=== PATIENT | female | born 1950 | race Caucasian/White ===

== ENCOUNTER 2019-06-11 19:08 | Inpatient (IN) ==
[2019-06-11] MEDS ORDERED: SOLU-MEDROL IV ONE (19:35)
[2019-06-11] MEDS ORDERED: PULMICORT INH ONE (19:35)
[2019-06-11] MEDS ORDERED: DUONEB (A & A) INH ONE (19:35)
[2019-06-11] MEDS: ALBUTEROL NEB INH ONE ×2 (19:52→22:12)
[2019-06-11] MEDS ORDERED: ALBUTEROL NEB ONE (19:56)
[2019-06-11 19:59] LABS: BASO# 0.21 X1000 (0.0-0.2); BASO% 1.8 % (0.0-0.8); EOS# 1.79 X1000 (0.0-0.7); EOS% 15.5 % (0.0-10.0); HEMATOCRIT 38.5 % (37.0-47.0); HEMOGLOBIN 12.4 g/dL (12.0-16.0); IMM GRAN# 0.02 X1000 (0.0-0.04); IMM GRAN% 0.2 % (0.0-0.5); LYMPH# 2.91 X1000 (1.2-3.4); LYMPH% 25.2 % (20.5-51.1); MCHC 32.2 g/dL (33-37); MCV 96.3 FL (81-99); MONO# 0.91 X1000 (0.11-0.59); MONO% 7.9 % (1.7-9.3); MPV 10.2 FL (7.4-10.4); NEUT# 5.73 X1000 (1.4-6.5); NEUT% 49.4 % (42.2-75.2); PLT 341 X1000 (130-400); RDW 13.4 % (11.5-14.5); WBC 11.57 X1000 (4.8-10.8)
--- NOTE | 2019-06-11 20:19 | Diag Imaging Result Doc PS360 ---
EXAM: CHEST-1 VIEW HISTORY: SOB TECHNIQUE: Single view COMPARISON: 02/18/2020 FINDINGS: The lungs are well expanded. The heart is not enlarged. The vessels are not distended. There are no infiltrates. No effusion identified. IMPRESSION: Negative exam. Electronically signed by Gus Rasheed 06/11/2019 8:17 PM
[2019-06-11 20:26] LABS: ALBUMIN 4.5 g/dL (3.5-5.0); CALCIUM 9.6 mg/dL (8.8-10.2); CREATININE 1.4 mg/dL (0.5-0.9); POTASSIUM 4.2 mmol/L (3.5-5.1); TOTAL BILIRUBIN 0.2 mg/dL (0.20-1.00); TOTAL PROTEIN 7.7 g/dL (6.3-8.3)
[2019-06-11] MEDS ORDERED: ALBUTEROL NEB INH ONE (22:05)
--- NOTE | 2019-06-11 22:57 | PROVIDER DOCUMENTATION ---
This chart was entered by Ana Lilia Rose Scribe, acting as scribe for Xander Mcclendon MD. HPI-Respiratory General - General Chief Complaint: Shortness of Breath Stated Complaint: LOW O2-COPD Time Seen by Provider: 06/11/19 19:22 Source: patient Allergies/Adverse Reactions: Patient Allergies Allergy/AdvReac Type Severity Reaction Status Date / Time erythromycin base Allergy Mild NAUSEA Verified 06/11/19 19:28 [Erythromycin Base] latex Allergy Unknown Verified 06/11/19 19:28 Home Medications: Home Medication List Medication Instructions Recorded Confirmed Last Taken Type Zolpidem [Ambien] 10 mg PO QHS 08/06/13 06/11/19 06/10/19 History Amlodipine Besylate [Norvasc] 5 mg PO DAILY 05/13/14 06/11/19 06/11/19 History Duloxetine [Cymbalta] 60 mg PO DAILY 05/13/14 06/11/19 06/11/19 History Albuterol Sulfate Inhaler 2 puff INH Q6H PRN PRN #1 inhaler 10/12/17 06/11/19 07/14/18 Rx [Ventolin Hfa] 2 puffs Metoprolol [Lopressor] 1 tab PO DAILY 06/11/19 06/11/19 06/11/19 History - History of Present Illness-Resp Nature of Presenting Problem: Pt is a 69 yof who presents to the ED with a CC of SOB. Pt states the SOB began this afternoon. Pt denies fever and chest pain. Pt reports coughing up a clear substance. Pt reports having a heart attack & 2 stents 10 years ago. Pt reports HBP and COPD. Pt reports popping in her ears. Pt reports congestion. Pt is a smoker. pt denies any other symptoms. Quality of Pain: reports: none Cough Quality/Degree: reports: mild Episode Frequency: no prior episodes Current Respiratory Medication Therapy: Initiated see nurses note Modifying Factors: improves with: nothing Associated Symptoms: reports: cough, nasal congestion, shortness of breath Similar Symptoms Previously?: No Recently seen or treated by another doctor?: No Review of Systems - Adult - REVIEW OF SYSTEMS - ADULT Constitutional: reports: see HPI Eyes: reports: no symptoms reported Ears, Nose, Mouth & Throat: reports: see HPI, other (EAR POPPING) Cardiovascular: reports: no symptoms reported Respiratory: reports: see HPI, cough, shortness of breath Gastrointestinal: reports: no symptoms reported Genitourinary: reports: no symptoms reported Musculoskeletal: reports: no symptoms reported Integumentary: reports: no symptoms reported Neurological: reports: no symptoms reported Psychiatric: reports: no symptoms reported Endocrine: reports: no symptoms reported Hematologic/Lymphatic: reports: no symptoms reported Allergic/Immunologic: reports: no symptoms reported All Other Systems: Reviewed and Negative Past History - Adult - PAST MEDICAL HISTORY-ADULT Review of Records: reports: Medications Reviewed Major Childhood Illnesses: reports: denies history Cardiovascular: reports: CAD, HTN, hyperlipidemia, other (poor circulation) Respiratory: reports: COPD Gastrointestinal: reports: denies history Obstetrical/Gynecological: reports: denies history Genitourinary: reports: denies history Musculoskeletal: reports: denies history Neurological: reports: denies history Endocrine/Immune: reports: denies history Other Conditions: reports: denies history - PRIOR SURGERIES/PROCEDURES Surgical/Procedure History: reports: cardiac stent, orthopedic (extremity) (hand Sx) - IMMUNIZATION STATUS Childhood Immunizations: See Nurse Assessment Flu Vaccine: See Nurse Assessment - FAMILY HISTORY Family History: reviewed, not pertinent - SOCIAL HISTORY Smoking: cigarettes, greater than 1 pack/day Provider spent 3-5 mins advising pt. on dangers of tobacco.: Discussed manners to quit use, and f/u contacts for add'l counseling. Substance Use: denies Living Situation: family Physical Exam-General - PHYSICAL EXAM-ADULT Initial Vital Signs Reviewed: Yes - CONSTITUTIONAL General Appearance: alert, no apparent distress - EYES Eyes: PERRL/EOMI, pink conjunctivae. negative: sunken eyes - HEAD, EARS, NOSE, MOUTH & THROAT HENMT: normocephalic/atraumatic, moist mucous membranes - NECK Neck: non-tender, full range of motion, supple, normal inspection - RESPIRATORY Respiratory: chest non-tender, other (slightly decreased air flow) - CARDIOVASCULAR Cardiovascular: normal peripheral pulses, regular rate, rhythm. negative: bradycardia, tachycardia - GASTROINTESTINAL (ABDOMEN) Abdominal Exam: normal bowel sounds, non tender, soft. negative: guarding, tenderness - MUSCULOSKELETAL Back Exam: normal inspection, no CVA tenderness, no vertebral tenderness. negative: ecchymosis Extremity: normal range of motion - SKIN Integumentary: normal color, normal turgor, warm/dry. negative: ecchymosis, erythema - PSYCHIATRIC Psych/Mental Status: normal mood/affect, normal thought content, normal thought process, oriented x 3 - HEART Score HEART Score: History: Slightly Suspicious HEART Score: Age: > or = 65 Years HEART Score: Risk Factors for Atherosclerotic Disease: > or = 3 Risk Factors or History of Atherosclerotic Disease Progress - PLAN OF CARE/RESULTS Progress/Plan/Lab Results: Vital Signs - 8 hr 06/11/19 19:22 06/11/19 19:50 06/11/19 21:00 Temperature 97.7 F Pulse Rate 71 63 63 Respiratory Rate 24 16 Blood Pressure 133/72 113/65 O2 Sat by Pulse Oximetry 88 L 94 L 92 L 06/11/19 22:14 Temperature Pulse Rate 89 Respiratory Rate 19 Blood Pressure O2 Sat by Pulse Oximetry Laboratory Results - last 24 hr 06/11/19 06/11/19 19:45 19:45 WBC 11.57 H RBC 4.00 L Hgb 12.4 Hct 38.5 MCV 96.3 MCH 31.0 MCHC 32.2 L RDW Std Deviation 13.4 Plt Count 341 MPV 10.2 Immature Gran % (Auto) 0.2 Neut % (Auto) 49.4 Lymph % (Auto) 25.2 Ocean % (Auto) 7.9 Eos % (Auto) 15.5 H Baso % (Auto) 1.8 H Immature Gran # (Auto) 0.02 Neut # (Auto) 5.73 Lymph # (Auto) 2.91 Ocean # (Auto) 0.91 H Eos # (Auto) 1.79 H Baso # (Auto) 0.21 H Sodium 140 Potassium 4.2 Chloride 101 Carbon Dioxide 27 Anion Gap 11 BUN 25 H Creatinine 1.4 H Estimated GFR/1.73 m2 37 BUN/Creatinine Ratio 18 Glucose 118 H Calculated Osmolality 285 Calcium 9.6 Total Bilirubin 0.20 AST 11 ALT 6 L Alkaline Phosphatase 89 Total Protein 7.7 Albumin 4.5 Globulin 3.0 Albumin/Globulin Ratio 1.0 Orders Category Date Time Status Nursing- Obtain EKG ONCE Care 06/11/19 19:34 Active CHEST-1 VIEW [RAD] Stat Exams 06/11/19 19:34 Completed CBC WITH DIFF [HEME] Stat Lab 06/11/19 19:45 Completed COMPREHENSIVE METABOLIC PANEL [CHEM] Stat Lab 06/11/19 19:45 Completed Albuterol 2.5MG/Ipratrop 0.5MG [Duoneb (A & A)] Med 06/11/19 19:35 Discontinued 3 ml INH NOW ONE Albuterol [Albuterol Neb] Med 06/11/19 19:56 Discontinued 2.5 mg .ROUTE .STK-MED ONE Albuterol [Albuterol Neb] Med 06/11/19 19:35 Discontinued 5 mg INH NOW ONE Albuterol [Albuterol Neb] Med 06/11/19 22:05 Discontinued 5 mg INH NOW ONE Budesonide [Pulmicort] Med 06/11/19 19:35 Discontinued 0.5 mg INH NOW ONE Methylprednisolone Sod Succ [Solu-Medrol] Med 06/11/19 19:35 Discontinued 125 mg IV NOW ONE Aerosol Treatments Routine Oth 06/11/19 19:35 Completed Aerosol Treatments Routine Oth 06/11/19 22:05 Completed Aerosol Treatments Stat Oth 06/11/19 19:35 Completed Aerosol Treatments Stat Oth 06/11/19 22:05 Completed EKG [EKG] Stat Ther 06/11/19 19:34 Ordered Result Diagrams: 06/11/19 19:45 06/11/19 19:45 - REASSESSMENT Reassessment #1 Time Reassessed: 21:50 (says feels almost back to normal, would not have come in if felt way she does now. Repeat exam- BS are clear. However sats are 86, says her NL are 92-93.) Reassessment #2 Time Reassessed: 22:53 (sats 88-89 on RA while sitting) - EKG 1 Time of EKG reading by physician:: 19:35 EKG Read and Signed by:: Xander Mcclendon EKG Interpretation (*Must complete 3 of following elements*): Abnormal (rate 63 septal infarct, age undetermined NSR) - CONSULTS/PCP/HOSPITALIST Notification #1 *Consult/PCP/Hospitalist*: [place] Time Discussed: 22:56 Consult Disposition: Admit Departure - Departure Date of Disposition Decision: 06/11/19 Time of Disposition Decision: 22:54 DIAGNOSIS: COPD with exacerbation, Hypoxia, Tobacco abuse disorder Disposition: ADMITTED INPATIENT 09 Certified Medical Emergency: Emergent Condition: Stable Referrals and Follow-Ups: Stephen Crisostomo MD [Primary Care Provider] - Discharge Education: Steps to Quit Smoking, [facility] - Critical Care Note This patient required my direct & personal management of CC.: No Attestation - Physician/ ABBIE Attestation Patient care was provided by Advanced Practice Provider:: No The physician spent face to face time with patient:: Yes Advanced Practice Provider documentation review:: Supervising physician onsite and consulted in the evaluation and care of this patient. The physician did have a face to face encounter with the patient. This chart was documented by the indicated scribe, (Ana Lilia Rose Scribe) and accurately reflects the services I performed and decisions made by me, Xander Mcclendon MD, as attested by the provider's signature.
[2019-06-11] MEDS ORDERED: NICODERM PATCH TD ONE (23:00)
[2019-06-11] MEDS: DUONEB (A & A) INH SCH (23:44)
[2019-06-12] MEDS: SOLU-MEDROL IV SCH ×4 (02:18→21:44)
[2019-06-12] MEDS: DUONEB (A & A) INH SCH ×5 (07:32→22:30)
--- NOTE | 2019-06-12 07:51 | EKG Report ---
Test Performed on : 06/11/2019 7:35:45 PM Test Reason : SOB Blood Pressure : / mmHG Vent. Rate : 062 BPM Atrial Rate : 062 BPM P-R Int : 168 ms QRS Dur : 082 ms QT Int : 434 ms P-R-T Axes : 066 -11 050 degrees QTc Int : 440 ms Normal sinus rhythm. Septal infarct (cited on or before 11-JUN-2019) Abnormal ECG When compared with ECG of 11-JUN-2019 19:35, (Unconfirmed) No significant change was found Unconfirmed Result
[2019-06-12] MEDS ORDERED: FLU VACCINE IM ONE (08:00)
[2019-06-12] MEDS: ZOFRAN IV PRN ×2 (14:42→20:03)
[2019-06-12] MEDS ORDERED: NICODERM PATCH TD PRN (16:06)
--- NOTE | 2019-06-12 16:43 | HISTORY AND PHYSICAL ---
CHIEF COMPLAINT: Shortness of breath. HISTORY OF PRESENT ILLNESS: This is a 69-year-old female with a history of COPD and CAD, who presents with shortness of breath, "her breathing went down." She does report a cough productive of light sputum, sore throat, congestion, and excessive shortness of breath, subjective fevers as well. Her main concern is she checks her oximetry at home and she got a number of 86% and then she came in for evaluation. She was found to be acutely bronchospastic and she was admitted for COPD exacerbation associated pneumonia. PAST MEDICAL HISTORY: 1. COPD. 2. History of CAD. 3. Hypertension. PAST SURGICAL HISTORY: PCI x2, shoulder surgery, wrist surgery. SOCIAL HISTORY: Forty pack year history of smoking. No alcohol. FAMILY HISTORY: Asthma, breast cancer, [place]. ALLERGIES: Azithromycin. MEDICATIONS: Ambien 10, Cymbalta 60 daily, Lopressor 25 daily, Norvasc 5 daily, albuterol as needed. REVIEW OF SYSTEMS: Otherwise negative times a 10 point review of systems. PHYSICAL EXAMINATION: VITAL SIGNS: Blood pressure was 129/68, heart rate of 88, respiratory rate of 17, O2 saturation 97%, temperature 98.1 degrees. GENERAL: A well-developed female, in no acute distress. She seems a little bit jittery from breathing treatments, steroids. EYES: Pupils equal, round, reactive to light. Extraocular movements were intact. EAR, NOSE, THROAT: She had moist mucous membranes. NECK: Supple. CARDIOVASCULAR: Regular rate and rhythm. PULMONARY: She had end-expiratory wheezes occasionally. She had bronchial breath sounds at the right base, but fairly good air movement. GI: Soft, nontender, nondistended. Bowel sounds are positive. NEUROLOGIC: Nonfocal. MUSCULOSKELETAL: Has 4/5 in all 4 extremities. LABORATORY DATA: White count is 11, hemoglobin and hematocrit 12 and 38, platelets 341,000. Creatinine of 1.4. ASSESSMENT: This is a 69-year-old female with history of chronic obstructive pulmonary disease, bronchitis, here with a chronic obstructive pulmonary disease exacerbation. 1. Chronic obstructive pulmonary disease exacerbation. Continue nebulizers, antibiotics, and treatments. Repeat chest x-ray to evaluate for pathology. 2. Tobacco abuse. We counseled on cessation. 3. Hypertension. We adjusted her medications. DISPOSITION: Pending her clinical status. I anticipate she will need home oxygen and we can continue to follow that. Outpatient pulmonary follow up, PFTs, and possibly long-acting beta agonist versus inhaled steroid. cc: Antonio Matute MD MTDD
[2019-06-12] MEDS: CYMBALTA PO SCH (16:55)
[2019-06-12] MEDS: ROCEPHIN 1 GM in NS 50 ML IV SCH (16:55)
[2019-06-12] MEDS: NORVASC PO SCH (16:55)
[2019-06-12] MEDS: SPIRIVA INH SCH (17:54)
[2019-06-12 21:03] LABS: BILIRUBIN URINE NEGATIVE (NEGATIVE); BLOOD URINE 1+ (NEGATIVE); CLARITY CLEAR (CLEAR); COLOR YELLOW; KETONE URINE TRACE mg/dL (NEGATIVE); LEUKOCYTES URINE TRACE (NEGATIVE); NITRITE URINE NEGATIVE (NEGATIVE); PROTEIN URINE NEGATIVE (NEGATIVE); SP GRAVITY URINE 1.015; UROBILINOGEN URINE NORMAL
[2019-06-12 21:07] LABS: URINE WBC <10 /HPF (<10)
[2019-06-12 21:08] LABS: URINE BACTERIA 2+ /HFP; URINE EPITHELIAL CELLS <10 /HPF (<10); URINE RBC <10 /HPF (<10); URINE SOURCE CLEAN CATCH
[2019-06-12] MEDS: AMBIEN PO SCH (21:44)
[2019-06-12] MEDS: MUCINEX PO SCH (21:44)
--- NOTE | 2019-06-13 05:56 | Diag Imaging Result Doc PS360 ---
EXAM: CT HEAD W/O CONTRAST HISTORY: Fall TECHNIQUE: CT head without contrast COMPARISON: None. FINDINGS: Right posterior scalp soft tissue swelling. No parenchymal hemorrhage. No epidural or subdural hematoma. No subarachnoid hemorrhage. Chronic microvascular ischemic changes with an old left caudate lacunar infarct. There is also an old right frontal lacunar infarct and a small infarct adjacent to the occipital horn of the left lateral ventricle. No mass identified on this noncontrasted exam. No hydrocephalus. No skull fracture. IMPRESSION: 1.Posterior scalp soft tissue swelling, but no intracranial injury 2.Old infarcts with chronic microvascular ischemic changes 3.A preliminary report was given at 3:24 AM This exam was performed using automated exposure control, adjustment of mA or kV according to patient size, and/or use of iterative reconstruction technique. Electronically signed by Gus Rasheed 06/13/2019 5:54 AM
--- NOTE | 2019-06-13 06:00 | Diag Imaging Result Doc PS360 ---
EXAM: CHEST-2 VIEWS HISTORY: hypoxia TECHNIQUE: Two views COMPARISON: 06/11/2019 FINDINGS: The lungs are hyperexpanded. The heart is not enlarged. The vessels are small. There are no infiltrates. No pleural effusions. Calcified left hilar lymph node. IMPRESSION: Emphysema Electronically signed by Gus Rasheed 06/13/2019 5:58 AM
[2019-06-13] MEDS: SOLU-MEDROL IV SCH ×3 (06:02→21:24)
--- NOTE | 2019-06-13 06:04 | Diag Imaging Result Doc PS360 ---
EXAM: PELVIS HISTORY: Fall TECHNIQUE: Single view COMPARISON: None. FINDINGS: No fracture. No dislocation. Prominent atherosclerosis. IMPRESSION: No acute bony injury. A preliminary report was given at 3:25 AM Electronically signed by Gus Rasheed 06/13/2019 6:02 AM
[2019-06-13 06:48] LABS: CALCIUM 9.5 mg/dL (8.8-10.2); CREATININE 1.3 mg/dL (0.5-0.9); MAGNESIUM 1.8 mg/dL (1.5-2.7); POTASSIUM 4.1 mmol/L (3.5-5.1)
[2019-06-13 06:59] LABS: BASO# 0.03 X1000 (0.0-0.2); BASO% 0.1 % (0.0-0.8); HEMATOCRIT 38.6 % (37.0-47.0); IMM GRAN# 0.12 X1000 (0.0-0.04); IMM GRAN% 0.4 % (0.0-0.5); LYMPH# 1.09 X1000 (1.2-3.4); LYMPH% 3.9 % (20.5-51.1); MCH 30.4 PG (27-31); MCHC 31.1 g/dL (33-37); MCV 97.7 FL (81-99); MONO% 2.9 % (1.7-9.3); MPV 10.4 FL (7.4-10.4); NEUT# 25.59 X1000 (1.4-6.5); NEUT% 92.7 % (42.2-75.2); PLT 366 X1000 (130-400); RBC 3.95 XMIL (4.2-5.4); RDW 13.8 % (11.5-14.5); WBC 27.63 X1000 (4.8-10.8)
[2019-06-13 07:27] LABS: LYMPHS 5 % (21-51); MONO 2 % (1-9); SEGS 93 % (42-75)
[2019-06-13] MEDS: SPIRIVA INH SCH (07:53)
[2019-06-13] MEDS: DUONEB (A & A) INH SCH ×3 (07:53→15:30)
[2019-06-13] MEDS: CYMBALTA PO SCH (09:34)
[2019-06-13] MEDS: NORVASC PO SCH (09:34)
[2019-06-13] MEDS: MUCINEX PO SCH ×2 (09:34→21:24)
[2019-06-13] MEDS: ROCEPHIN 1 GM in NS 50 ML IV SCH (15:23)
[2019-06-13] MEDS: TYLENOL PO PRN (16:43)
--- NOTE | 2019-06-13 17:17 | PROGRESS NOTE ---
DATE: 06/13/2019 SUBJECTIVE: Patient notes that she is feeling a little bit better. Still having some cough, shortness of breath, dyspnea on exertion. Denies any fevers or chills. OBJECTIVE: Vital signs: Temperature 98, pulse 103, respiratory rate 18, BP 122/61. General: Patient is in mild current respiratory distress. HEENT: Normocephalic. Neck: Supple. Cardiovascular: Regular rate. Chest: Decreased but equal. No crackles. No wheezing. Abdomen: Soft, nondistended. Extremities: Moves all extremities. No edema. Neurologic: No changes. ASSESSMENT: 1. Chronic obstructive pulmonary disease with exacerbation. 2. Chronic tobacco abuse. 3. Hypertension. 4. Leukocytosis. 5. Chronic renal failure. 6. Hyperglycemia. PLAN: We are going to decrease her Solu-Medrol. She is on Rocephin. We are going to continue that. I expect that her white count elevation is secondary to steroids as clinically she does appear to be improving. We are going to continue to follow. Further orders as needed. Hopefully if her white count improves and she improves, she can discharge home tomorrow. cc: Keny Zaidi MD
[2019-06-13] MEDS: XOPENEX NEB INH SCH ×2 (19:31→22:54)
[2019-06-13] MEDS: AMBIEN PO SCH (21:24)
[2019-06-14] MEDS: XOPENEX NEB INH SCH ×8 (02:37→23:56)
[2019-06-14 05:14] LABS: HEMOGLOBIN 11.3 g/dL (12.0-16.0); MCH 30.1 PG (27-31); MCHC 30.5 g/dL (33-37); MCV 98.4 FL (81-99); MPV 10.3 FL (7.4-10.4); RBC 3.76 XMIL (4.2-5.4); RDW 14.2 % (11.5-14.5); WBC 15.25 X1000 (4.8-10.8)
[2019-06-14] MEDS: SOLU-MEDROL IV SCH ×3 (05:42→21:00)
[2019-06-14 05:50] LABS: AGAP 12; ALKALINE PHOSPHATASE 70 U/L (32-104); BUN 23 mg/dL (8-22); CALCIUM 9.1 mg/dL (8.8-10.2); CHLORIDE 102 mmol/L (98-107); COSMO 283; CREATININE 1.1 mg/dL (0.5-0.9); ESTIMATED GFR 49; GLUCOSE 137 mg/dL (70-104); GOT 12 U/L (10-30); GPT 9 U/L (10-36); POTASSIUM 4.3 mmol/L (3.5-5.1); SODIUM 139 mmol/L (136-145); TCO2 26 mmol/L (25-35); TOTAL BILIRUBIN < 0.15 mg/dL (0.20-1.00); TOTAL PROTEIN 6.9 g/dL (6.3-8.3)
[2019-06-14] MEDS: SPIRIVA INH SCH (08:03)
--- NOTE | 2019-06-14 09:19 | Diag Imaging Result Doc PS360 ---
EXAM: CHEST-2 VIEWS HISTORY: hypoxia TECHNIQUE: Two views COMPARISON: 06/13/2019 FINDINGS: The lungs are hyperexpanded. The heart is not enlarged. The vessels are small. There are no infiltrates. No pleural effusions. IMPRESSION: Emphysema Electronically signed by Gus Rasheed 06/14/2019 9:17 AM
[2019-06-14] MEDS: NORVASC PO SCH (09:27)
[2019-06-14] MEDS: MUCINEX PO SCH ×2 (09:27→20:51)
[2019-06-14] MEDS: CYMBALTA PO SCH (09:27)
[2019-06-14] MEDS: ROCEPHIN 1 GM in NS 50 ML IV SCH (15:52)
--- NOTE | 2019-06-14 16:04 | EKG Report ---
Test Performed on : 06/14/2019 3:35:12 PM Test Reason : 7 beat run of radha oleary on telemetry Blood Pressure : / mmHG Vent. Rate : 087 BPM Atrial Rate : 087 BPM P-R Int : 146 ms QRS Dur : 090 ms QT Int : 378 ms P-R-T Axes : 071 -30 057 degrees QTc Int : 454 ms Normal sinus rhythm. Possible Left atrial enlargement Left axis deviation RSR' or QR pattern in V1 suggests right ventricular conduction delay Possible Anteroseptal infarct (cited on or before 14-JUL-2018) Abnormal ECG When compared with ECG of 11-JUN-2019 19:35, (Unconfirmed) No significant change was found Confirmed by Stephen Banda MD ([id number]) on 06/15/2019 1:57:47 AM
[2019-06-14] MEDS: AMBIEN PO SCH (20:51)
--- NOTE | 2019-06-14 20:58 | PROGRESS NOTE ---
DATE: 06/14/2019 SUBJECTIVE: Patient notes that she is feeling a lot better, but still not back to her baseline. Still coughing, congestion, still wheezing, still short of breath with short ambulation to the restroom. PHYSICAL EXAMINATION: Temperature 98, pulse 103, respiratory rate 18, BP 120/60.General: Patient is very pleasant. She is still in mild respiratory distress. HEENT: Normocephalic. Neck: Supple. Cardiovascular: Regular rate. Chest: Decreased breath sounds. Minimal wheezing. No crackles. Positive rhonchi. Abdomen: Soft, nondistended, nontender. Extremities: Moves all extremities. Neurologic: No changes. ASSESSMENT: 1. Leukocytosis. White count is improving, down to 15. 2. Chronic obstructive pulmonary disease with exacerbation. 3. Chronic tobacco abuse. 4. Hypertension. 5. Acute on chronic renal failure. Resolved. PLAN: We are going to continue patient in the hospital. Continue Rocephin for her antibiotics. Continue breathing treatments, steroids. We will decrease her steroids to 40 IV q.12, and see how she tolerates this. Further orders as needed. cc: Keny Zaidi MD
[2019-06-15] MEDS: XOPENEX NEB INH SCH ×6 (04:27→23:02)
[2019-06-15 05:05] LABS: HEMATOCRIT 39.3 % (37.0-47.0); MCH 29.8 PG (27-31); MCHC 30.5 g/dL (33-37); MCV 97.5 FL (81-99); MPV 10.3 FL (7.4-10.4); RBC 4.03 XMIL (4.2-5.4); RDW 14.1 % (11.5-14.5); WBC 11.49 X1000 (4.8-10.8)
[2019-06-15] MEDS: SOLU-MEDROL IV SCH ×3 (05:11→22:16)
[2019-06-15 05:26] LABS: CALCIUM 9.2 mg/dL (8.8-10.2); POTASSIUM 4.6 mmol/L (3.5-5.1); TOTAL BILIRUBIN 0.2 mg/dL (0.20-1.00); TOTAL PROTEIN 6.8 g/dL (6.3-8.3)
[2019-06-15] MEDS: SPIRIVA INH SCH (08:22)
[2019-06-15] MEDS: NORVASC PO SCH (09:27)
[2019-06-15] MEDS: MUCINEX PO SCH ×2 (09:27→20:31)
[2019-06-15] MEDS: CYMBALTA PO SCH (09:27)
[2019-06-15] MEDS: ROCEPHIN 1 GM in NS 50 ML IV SCH (15:52)
[2019-06-15] MEDS: AMBIEN PO SCH (20:31)
--- NOTE | 2019-06-15 22:06 | PROGRESS NOTE ---
DATE: 06/15/2019 SUBJECTIVE: Patient notes that overall she is feeling better, although still gets extremely weak and fatigued and short of breath when trying to ambulate to the restroom. Still very nervous about going home due to her shortness of breath. Denies any fevers. PHYSICAL EXAMINATION: Vital Signs: Temperature 98 degrees, pulse 83, respiratory rate 18, BP 141/66, saturation 94% on 2 L. General: Patient is awake. She is still in mild respiratory distress, unclear of her actual baseline. HEENT: Normocephalic. Neck: Supple. Cardiovascular: Regular rate. Chest: Clear, but decreased breath sounds bilaterally and equal. Abdomen: Soft. Extremities: Moves all extremities. ASSESSMENT: 1. Leukocytosis. White count actually has continued to improve at 11. 2. Chronic obstructive pulmonary disease, with exacerbation. 3. Acute hypoxic respiratory failure. 4. Hypertension. PLAN: Continue antibiotics. Her acute renal failure has resolved. We are going to decrease her Solu-Medrol to 40 q.12 and will follow. We will attempt to wean her off oxygen today. Hopefully, her symptoms will improve and she can discharge home over the next 2 or 3 days. cc: Keny Zaidi MD
[2019-06-16] MEDS: XOPENEX NEB INH SCH ×3 (03:39→10:38)
[2019-06-16] MEDS: SOLU-MEDROL IV SCH ×2 (05:04→13:56)
[2019-06-16] MEDS: SPIRIVA INH SCH (07:11)
[2019-06-16] MEDS: TYLENOL PO PRN (10:01)
[2019-06-16] MEDS: MUCINEX PO SCH (10:01)
[2019-06-16] MEDS: NORVASC PO SCH (10:02)
[2019-06-16] MEDS: CYMBALTA PO SCH (10:02)
[2019-06-16 11:56] VITALS: BP 149/85
--- NOTE | 2019-06-17 14:12 | DISCHARGE SUMMARY ---
ADMISSION DATE: 06/11/2019 DISCHARGE DATE: 06/16/2019 DISCHARGE DIAGNOSES: 1. Acute hypoxic respiratory failure, resolved. 2. Chronic obstructive pulmonary disease with exacerbation, improved. 3. Chronic tobacco abuse. 4. Hypertension. 5. Leukocytosis, improved. 6. Acute on chronic renal failure, improved. 7. History of cerebrovascular accident with an old infarct, stable. CONSULTATIONS: None. PROCEDURES: None. BRIEF HOSPITAL COURSE: Patient is a 69-year-old female who presented to [facility] secondary to cough, congestion, shortness of breath, increased work of breathing. She was placed in the hospital on antibiotics, breathing treatments, steroids, and IV fluids. Thankfully, over time, her breathing improved. She was able to wean down and off oxygen. We were able to wean down her Solu-Medrol. DISPOSITION: Patient will be discharged home. She will continue breathing treatments at home. She will continue antibiotics at home. She will continue Medrol Dosepak at home. Again discussed with her the importance of not only stopping smoking but stopping smoke exposure. No exposure to chronic chemicals. Will continue to follow up with her primary care in 1 week. cc: Keny Zaidi MD
--- NOTE | 2019-06-17 16:45 | DISCHARGE SUMMARY ---
ADMISSION DATE: 06/11/2019 DISCHARGE DATE: 06/16/2019 DIAGNOSES: 1. Chronic obstructive pulmonary disease acute exacerbation. 2. Tobacco abuse. 3. Hypertension. 4. Leukocytosis. DIAGNOSTICS: 1. 06/11/2019 chest x-ray revealed negative exam. 2. 06/13/2019 chest x-ray revealed emphysema. 3. 06/14/2019 chest x-ray revealed emphysema. 4. Hip and pelvis x-ray revealed no fracture, no dislocation. 5. CT of the head revealed posterior scalp soft tissue swelling but no intracranial injury. Old infarcts and chronic microvascular ischemic changes. 6. Urine culture revealed no growth. HOSPITAL COURSE: Ms. Nagel presented to the emergency room complaining of shortness of breath. She was found to be in a COPD exacerbation for which she was treated with nebulizers, antibiotics and steroids to taper. White count increased to 27.6 very likely secondary to steroid use. As steroids were tapered white count has decreased is down to 11. She does feel better. She does not feel that she is back to her baseline but she states she is almost there. She continues to be a little short of breath on ambulation, although this is chronic. Room air saturations sitting was 94%, room air saturation with exercise was 92%. DISCHARGE PHYSICAL EXAM: Vital signs: Blood pressure is 149/85 with a heart rate of 98, respirations are 20, temperature is 98.2 degrees oral with room air saturations 94%. Cardiovascular: Regular rate and rhythm. S1 and S2 appreciated. Pulmonary: Breath sounds are clear with no increased work of breathing noted. Chest rises and falls symmetric with respiration. Gastrointestinal: Abdomen soft, nontender, nondistended. Bowel sounds in all 4 quadrants. Neurologic: She is alert, oriented x3. Skin: Warm and dry. DISCHARGE MEDICATIONS: 1. Ambien 10 mg p.o. at bedtime. 2. Cymbalta 60 mg p.o. daily. 3. Norvasc 5 mg p.o. daily. 4. Medrol Dosepak as directed. 5. Mucinex 600 mg p.o. b.i.d. 6. Spiriva 1 puff as directed. 7. Ventolin inhaler 2 puffs q.6 hours p.r.n. wheezing. 8. Zithromax Z-David take as directed. 9. Omnicef 300 mg p.o. b.i.d. for 7 days. FOLLOWUP: Dr. Stephen Crisostomo, her primary care physician. She needs to call to schedule appointment to be seen in 1 to 2 weeks. She has been instructed to call to be seen sooner or return to the emergency room for syncope, dizziness, chest pain, palpitations, temperature greater than 101, increasing shortness of breath, any nausea, vomiting, diarrhea, constipation, black or bloody vomitus or stools or for any questions or concerns that she may have. She is being discharged home in stable condition with family members. TIME SPENT: Greater than 30 minutes. Dictated by ANGELA Smith for Keny Zaidi MD cc: ANGELA Smith MD
== END 2019-06-16 14:35 | disposition home or self-care (01) | DRG 190 ==
LOC: P.ED 19:08 → SUATTDRO 23:44 → P.MEDSURG 23:44
PROVIDERS: ATTEND Family Medicine